=== PATIENT | female | born 1975 | race Caucasian/White ===

== ENCOUNTER 2019-04-10 22:01 | Emergency (ER) | payer BC, OTHER ==
--- NOTE | 2019-04-10 22:12 | EDM.PDOC ---
ED HPI GENERAL MEDICAL PROBLEM - General Chief Complaint: Flank Pain Stated Complaint: RIGHT FLANK PAIN/SORE THROAT Time Seen by Provider: 04/10/19 22:09 Source of Information: Reports: Patient History Limitations: Reports: No Limitations - History of Present Illness INITIAL COMMENTS - FREE TEXT/NARRATIVE: 43-year-old female presents the ED due to increasing right flank pain i.e. constant aching discomfort associated with frequency and urgency. She is taking Azo for the last 4 days and doesn't have much dysuria. She is prone to urinary tract infection. She said she didn't have one for 5 years after taking cranberry juice etc. She's had 2 infections within the last few months. Stone was about a month ago. She has a low-grade fever. She also developed upper respiratory tract infection with nasal congestion and postnasal drip and pressure in her sinus and throat in the last 24 hours. Offer sputum production. Note chills or severe rigors. Slow abdominal discomfort improves with voiding. No diarrhea. Onset: Gradual (.Urinary tract symptoms probably 4 days ago.), Other ( 4 days. throat nasal congestion started yesterday.) Duration: Day(s):, Getting Worse (Flank pain), Other (He is a congestion sore throat the last 24 hours) Location: Reports: Head ([place] congestion postnasal drip pressure in her ears. Sore throat.), Back Quality: Reports: Ache (Right flank pain which is pretty constant.), Throbbing, Other (Right flank) Severity: Moderate (earning sharp pain in her throat.) Improves with: Reports: Medication Worsens with: Reports: None Context: Reports: Other (Patient presents with a combination of symptoms right flank pain suggestive of a right-sided pyelonephritis urinary tract infection associated with a viral upper respiratory tract infection with sinus congestion) . Denies: Activity, Exercise, Lifting, Sick Contact, Trauma Associated Symptoms: Reports: Fever/Chills, Malaise, Other (Sore throat pressure in her ears.). 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, Other (see below) (Motrin and taking Azo over- the-counter for urinary tract symptoms for the last 4 days.) Right Flank Pain Score (Numeric/FACES): 3 - Related Data Allergies Allergy/AdvReac Type Severity Reaction Status Date / Time Sulfa (Sulfonamide Allergy Hives Verified 04/10/19 22:15 Antibiotics) Home Meds: Home Meds Cholecalciferol (Vitamin D3) [Vitamin D3] 10,000 units PO DAILY 04/10/19 [ History] Ciprofloxacin HCl [Cipro] 500 mg PO BID #20 tablet 04/10/19 [Rx] Cranberry 500 mg PO DAILY 04/10/19 [History] Cyanocobalamin (Vitamin B-12) [Vitamin B-12] 1 tab PO DAILY 04/10/19 [History] Loratadine/Pseudoephedrine [Claritin-D 12 Hour] 1 tab PO Q12HR #10 tab.er [Rx] Methenamine/Sodium Salicylate [Azo Urinary Tract Defense Tab] 1 tab PO DAILY PRN 04/10/19 [History] Multivitamin [Multivitamins] 1 cap PO DAILY 04/10/19 [History] [place]-3/DHA/Epa/Fish Oil [Fish Oil 1,000 mg Softgel] 1 cap PO DAILY 04/10/19 [ History] Past Medical History Genitourinary History: Reports: UTI, Recurrent (Frequent urinary tract infections.) Social & Family History - Living Situation & Occupation Living situation: Reports: Occupation: Employed ED ROS GENERAL - Review of Systems Review Of Systems: See Below Constitutional: Reports: Fever, Chills, Malaise, Other (Sore throat or ears.) HEENT: Reports: Ear Pain (Overpressure both ears. Worse on the left than on the right.), Sinus Problem, Other (Nasal drip). Denies: Ear Discharge Respiratory: Reports: No Symptoms, Cough Cardiovascular: Reports: No Symptoms (Minimal cough.) Endocrine: Reports: No Symptoms GI/Abdominal: Reports: Abdominal Pain (Suprapubic pressure discomfort rating towards the right side.) : Reports: Flank Pain, Frequency (Right flank pain), Urgency. Denies: Dysuria (Azo taking 3 times daily is provided most of the dysuria.) Musculoskeletal: Reports: Back Pain (Right flank pain) Skin: Reports: No Symptoms Neurological: Reports: No Symptoms Psychiatric: Reports: No Symptoms Hematologic/Lymphatic: Reports: No Symptoms Immunologic: Reports: No Symptoms ED EXAM, GI/ABD - Physical Exam Exam: See Below Exam Limited By: No Limitations General Appearance: Alert, WD/WN, No Apparent Distress, Other (Sugars 37.7. Heart rate is 108. Respiratory is 20 BP 1 3892 pulse oximetry is 100% on room air.) Eyes: Bilateral: Normal Appearance Ears: Other Nose: Other (Left tympanic membrane is mildly retracted. No infection evident. Can nasal congestion with marked swelling of the superior and medial turbinates bilaterally. Minimal right-sided) Throat/Mouth: Normal Inspection, Normal Lips, Normal Teeth, Normal Oropharynx, Other Head: Atraumatic (The oropharynx essentially looks normal. There is no cervical adenopathy or exudate.), Normocephalic Neck: Normal Inspection, Supple, Non-Tender, Full Range of Motion. No: Lymphadenopathy (L), Lymphadenopathy (R) Respiratory/Chest: No Respiratory Distress, Lungs Clear, Normal Breath Sounds, No Accessory Muscle Use Cardiovascular: Normal Peripheral Pulses, Regular Rate, Rhythm, No Edema, No Gallop, No Murmur, No Rub GI/Abdominal Exam: Normal Bowel Sounds, Soft, No Organomegaly, No Mass, Pelvis Stable, Tender. No: Guarding, Rigid (No tenderness suprapubically.), Rebound Back Exam: Normal Inspection (Mild.), CVA Tenderness (R). No: CVA Tenderness (L ) Extremities: Normal Inspection, Normal Range of Motion, Non-Tender, No Pedal Edema Neurological: Alert, Oriented, CN II-XII Intact, Normal Cognition, Normal Gait Psychiatric: Normal Affect, Normal Mood Skin Exam: Warm, Dry, Intact, Normal Color, No Rash Course - Vital Signs Last Recorded V/S: Last Vital Signs Temp 37.7 C 04/10/19 22:08 Pulse 108 H 04/10/19 22:08 Resp 20 04/10/19 22:08 BP 138/92 H 04/10/19 22:08 Pulse Ox 100 04/10/19 22:08 - Orders/Labs/Meds Orders: Active Orders 24 hr Category Date Time Status CULTURE STREP A CONFIRMATION [] Stat Lab 04/10/19 22:40 Results STREP SCRN A RAPID W CULT CONF [RM] Stat Lab 04/10/19 22:40 Results Labs: Laboratory Tests 04/10/19 Range/Units 22:36 Urine Color Yellow (Yellow) Urine Appearance Clear (Clear) Urine pH 7.0 (5.0-8.0) Ur Specific [place] 1.010 (1.005-1.030) Urine Protein Trace H (Negative) Urine Glucose (UA) Negative (Negative) Urine Ketones 1+ H (Negative) Urine Occult Blood 3+ H (Negative) Urine Nitrite Positive H (Negative) Urine Bilirubin Negative (Negative) Urine Urobilinogen 0.2 (0.2-1.0) Ur Leukocyte Esterase 3+ H (Negative) Urine RBC 5-10 H (0-5) /hpf Urine WBC 40-50 H (0-5) /hpf Urine WBC Clumps Occasional (NOT SEEN) /hpf Ur Squamous Epith Cells 5-10 H (0-5) /hpf Urine Bacteria Few (FEW) /hpf Urine Mucus Few (FEW) /hpf - Re-Assessments/Exams Free Text/Narrative Re-Assessment/Exam: 04/10/19 23:28 Urinalysis shows 1+ ketones 3+. Blood positive nitrates. 3+ leukocyte esterase.Micro-shows 5-10 RBCs per high power field and 40-50 WBCs per hour prior field with occasional clumps. Also 5-10 squamous epithelial cells suggesting pyelonephritis. Urine culture has been ordered 04/10/19 23:35: Patient will be discharged home on Cipro 500 mg twice daily for the next 10 days. She will tentatively get her meds out of the [employer] machine. She will use Motrin 600 mg every 6 hours needed for pain relief and fever relief. She was also prescribed Claritin-D 12 hour release to be taken 1 tablet every morning for the next week or 10 days to decongest her sinuses and eustachian tubes. Departure - Departure Time of Disposition: 23:40 Disposition: Home, Self-Care 01 Condition: Fair Clinical Impression: Pyelonephritis Sinusitis Qualifiers: Sinusitis location: maxillary Chronicity: acute Recurrence: recurrent Qualified Code(s): J01.01 - Acute recurrent maxillary sinusitis Upper respiratory tract infection Qualifiers: URI type: acute pharyngitis Pharyngitis/tonsillitis etiology: unspecified etiology Qualified Code(s): J02.9 - Acute pharyngitis, unspecified - Discharge Information *PRESCRIPTION DRUG MONITORING PROGRAM REVIEWED*: Not Applicable *COPY OF PRESCRIPTION DRUG MONITORING REPORT IN PATIENT TATIANNA: Not Applicable Prescriptions: Loratadine/Pseudoephedrine [Claritin-D 12 Hour] 1 tab PO Q12HR #10 tab.er Ciprofloxacin HCl [Cipro] 500 mg PO BID #20 tablet Instructions: Sinusitis, Adult, [id number] Referrals: PCP,None [Primary Care Provider] - Forms: ED Department Discharge Additional Instructions: Evaluation the emergency room tonight in regards to upper respiratory tract infection which is most likely viral in origin but seems to cause significant occlusion of your eustachian tubes and sinuses. Clinically of sinusitis with postnasal drip. She was Claritin-D 12 hour release 1 tablet once daily every morning for the next 5-10 days to open up eustachian tubes and help the sinuses drain. Antibiotic Cipro 500 mg twice daily for the next 10 days is being prescribed primarily for right-sided kidney infection but will also help any bacterial sinus infection. Use Motrin 600 mg every 6 hours for flank pain and reduction of fever. Expect marked improvement over the next 36 hours in terms of right flank pain and fever relief once the antibiotics become effective. Follow-up with personal care physician if any further problems occur. Sepsis Event Note - Focused Exam Vital Signs: Vital Signs Temp Pulse Resp BP Pulse Ox 04/10/19 22:08 37.7 C 108 H 20 138/92 H 100 Date Exam was Performed: 04/10/19 Time Exam was Performed: 23:58 - My Orders Last 24 Hours: My Active Orders 04/10/19 22:40 CULTURE STREP A CONFIRMATION [RM] Stat STREP SCRN A RAPID W CULT CONF [] Stat - Assessment/Plan Last 24 Hours: My Active Orders 04/10/19 22:40 CULTURE STREP A CONFIRMATION [RM] Stat STREP SCRN A RAPID W CULT CONF [] Stat
== END 2019-04-11 00:02 | disposition home or self-care (01) ==
LOC: JD.ED 22:01
DX: N12 Tubulo-interstitial nephritis, not specified as acute or chronic (principal); J01.01 Acute recurrent maxillary sinusitis; J02.9 Acute pharyngitis, unspecified; Z88.2 Allergy status to sulfonamides; Z79.899 Other long term (current) drug therapy
CPT/HCPCS: 81001; 87081; 87086; 87088; 87186; 87430; 99283; 99284